=== PATIENT | male | born 1935 | race Caucasian/White ===

== ENCOUNTER → 2016-08-21 | Outpatient (CLI) | payer MEDICARE, OTHER ==
[~2016-08-21] MED LIST: AMBIEN10 MG PO; ASPIRIN E.C. 8181 MG PO; ATROVENT NASAL15 ML NS; DETROL LA 4MG4 MG PO; FLOMAX0.4 MG PO; LISINOPRIL10 MG PO; METFORMIN500 MG PO; NEURONTIN300 M1 PO; NORCO 325 MG-51 TA1 PO; PRILOSEC 20MG20 MG PO; ZOCOR20 M1 PO
== END ==
LOC: LAB 07:13
DX: E11.9 Type 2 diabetes mellitus without complications (principal); N40.0 Benign prostatic hyperplasia without lower urinary tract symptoms; I10 Essential (primary) hypertension

== ENCOUNTER → 2016-09-02 | Outpatient (CLI) | payer MEDICARE, OTHER | LOC: VAS 16:45 | DX: R01.1 Cardiac murmur, unspecified (principal); I10 Essential (primary) hypertension; I35.0 Nonrheumatic aortic (valve) stenosis; I05.9 Rheumatic mitral valve disease, unspecified ==

== ENCOUNTER 2016-12-31 09:23 | Emergency (ER) | payer MEDICARE, OTHER ==
[~2016-12-31] VITALS: Wt 109.1 kg
[~2016-12-31 09:23] MED LIST changes: -AMBIEN10 MG PO; -ASPIRIN E.C. 8181 MG PO; -ATROVENT NASAL15 ML NS; -FLOMAX0.4 MG PO; -NEURONTIN300 M1 PO; -PRILOSEC 20MG20 MG PO
[2016-12-31] MEDS ORDERED: AMBIEN10 MG PO (10:52)
[2016-12-31] MEDS ORDERED: NEURONTIN300 M1 PO (10:53)
[2016-12-31] MEDS ORDERED: PRILOSEC 20MG20 MG PO (10:54)
[2016-12-31] MEDS ORDERED: ASPIRIN E.C. 8181 MG PO (10:55)
[2016-12-31] MEDS ORDERED: ATROVENT NASAL15 ML NS (10:55)
[2016-12-31] MEDS ORDERED: FLOMAX0.4 MG PO (12:55)
[2016-12-31 13:30] VITALS: BP 136/84
== END 2016-12-31 13:33 | disposition home or self-care (01) ==
LOC: ED 09:23
DX: R33.9 Retention of urine, unspecified (principal); R10.2 Pelvic and perineal pain; R63.0 Anorexia; E11.9 Type 2 diabetes mellitus without complications; I10 Essential (primary) hypertension; Z87.891 Personal history of nicotine dependence; Z79.84 Long term (current) use of oral hypoglycemic drugs
CPT/HCPCS: J7030; Q9967

== ENCOUNTER → 2017-01-06 | Outpatient (CLI) | payer MEDICARE, OTHER ==
[~2017-01-06] VITALS: Wt 109.1 kg
[~2017-01-06] MED LIST changes: +AMBIEN10 MG PO; +ASPIRIN E.C. 8181 MG PO; +ATROVENT NASAL15 ML NS; +FLOMAX0.4 MG PO; +NEURONTIN300 M1 PO; +PRILOSEC 20MG20 MG PO
[2017-01-06 20:35] VITALS: BP 137/73
--- NOTE | 2017-01-06 22:50 | NUR ---
20F COUDE VELAZQUEZ CATH PLACED WITHOUT DIFFICULTY. 650 ML OF CLEAR YELLOW URINE INITIALLY DRAINED. PT STATED HE HAD RELIEF AFTER VELAZQUEZ PLACED. VELAZQUEZ SWITCHED TO LEG BAG PER PT REQUEST AND LARGER BAG SENT WITH PT/.
== END ==
LOC: AMSURD 22:26
DX: Z46.6 Encounter for fitting and adjustment of urinary device (principal)
CPT/HCPCS: A4340; A4358

== ENCOUNTER → 2017-01-07 | Outpatient (CLI) | payer MEDICARE, OTHER ==
[~2017-01-07] VITALS: Wt 109.1 kg
[2017-01-07 22:10] VITALS: BP 126/83
== END ==
LOC: AMSURD 22:07
DX: Z46.6 Encounter for fitting and adjustment of urinary device (principal)

== ENCOUNTER → 2017-02-25 | Outpatient (CLI) | payer MEDICARE, OTHER ==
[2017-01-07 22:10] VITALS: BP 126/83
== END ==
LOC: LAB 09:04
DX: G47.62 Sleep related leg cramps (principal)

== ENCOUNTER → 2017-09-25 | Outpatient (CLI) | payer MEDICARE, OTHER ==
[2017-01-07 22:10] VITALS: BP 126/83
[2017-09-25 07:39] LABS: HEMATOCRIT 42.6 % (42.0-52.0); HEMOGLOBIN 14.5 g/dL (13.5-18.0); MEAN CELL VOLUME 98 fl (78-100); MEAN CORPUSCULAR HEMOGLOBIN 34 pg (27-31); MEAN CORPUSCULAR HGB CONC 34 g/dL (33-37); MEAN PLATELET VOLUME 9.6 fl (7.4-10.4); PLATELET COUNT 271 K/mm3 (130-400); RED BLOOD COUNT 4.33 M/mm3 (4.20-5.60); RED CELL DISTRIBUTION WIDTH 13.1 % (11.5-14.5); WHITE BLOOD COUNT 12.8 K/mm3 (4.8-10.8)
[2017-09-25 07:47] LABS: ALBUMIN 4.2 g/dL (3.5-5.0); BUN/CREATININE RATIO 26.7 (6.0-26.0); CALCIUM 9.3 mg/dL (8.4-10.2); POTASSIUM 4.3 mmol/L (3.6-5.0); TOTAL BILIRUBIN 0.4 mg/dL (0.2-1.3); TOTAL PROTEIN 7.3 g/dL (6.3-8.2)
[2017-09-25 07:48] LABS: URINE APPEARANCE CLOUDY; URINE COLOR YELLOW; URINE GLUCOSE NEGATIVE (NEGATIVE); URINE KETONE NEGATIVE (NEGATIVE); URINE PROTEIN(semi-quant) TRACE mg/dL (NEGATIVE)
[2017-09-25 07:49] LABS: URINE BILIRUBIN NEGATIVE (NEGATIVE); URINE BLOOD TRACE (NEGATIVE); URINE LEUKOCYTE ESTERASE 2+ (NEGATIVE); URINE MUCUS PRESENT (NOT PRESENT); URINE NITRATE POSITIVE (NEGATIVE); URINE UROBILINOGEN NORMAL (NORMAL); URINE WBC >50 /hpf (0-3)
[2017-09-25 08:04] LABS: LYMPHOCYTE 14 % (20-51); MONOCYTE 6 % (3-10); NEUTROPHILS 80 % (42-75)
== END ==
LOC: LAB 07:18
PROVIDERS: Family Medicine
DX: E11.9 Type 2 diabetes mellitus without complications (principal); N40.0 Benign prostatic hyperplasia without lower urinary tract symptoms; I10 Essential (primary) hypertension; Z91.041 Radiographic dye allergy status

== ENCOUNTER → 2017-10-13 | Outpatient (CLI) | payer MEDICARE, OTHER ==
[2017-01-07 22:10] VITALS: BP 126/83
[2017-10-13 15:51] LABS: URINE APPEARANCE CLEAR; URINE BILIRUBIN NEGATIVE (NEGATIVE); URINE COLOR YELLOW; URINE GLUCOSE NEGATIVE (NEGATIVE); URINE KETONE NEGATIVE (NEGATIVE); URINE NITRATE NEGATIVE (NEGATIVE); URINE PROTEIN(semi-quant) NEGATIVE (NEGATIVE); URINE UROBILINOGEN NORMAL (NORMAL)
[2017-10-13 15:52] LABS: URINE BLOOD NEGATIVE (NEGATIVE); URINE LEUKOCYTE ESTERASE 1+ (NEGATIVE); URINE WBC 16-30 /hpf (0-3)
== END ==
LOC: LAB 14:20
PROVIDERS: Family Medicine
DX: E11.9 Type 2 diabetes mellitus without complications (principal); I10 Essential (primary) hypertension; Z91.041 Radiographic dye allergy status

== ENCOUNTER → 2017-10-29 | Outpatient (CLI) | payer MEDICARE, OTHER ==
[2017-01-07 22:10] VITALS: BP 126/83
[2017-10-29 10:13] LABS: PH-URINE 5.5 (5.0 - 8.0); URINE APPEARANCE CLEAR; URINE BILIRUBIN NEGATIVE (NEGATIVE); URINE COLOR YELLOW; URINE GLUCOSE NEGATIVE (NEGATIVE); URINE KETONE NEGATIVE (NEGATIVE); URINE NITRATE NEGATIVE (NEGATIVE); URINE UROBILINOGEN NORMAL (NORMAL)
[2017-10-29 10:14] LABS: URINE BLOOD NEGATIVE (NEGATIVE); URINE LEUKOCYTE ESTERASE 1+ (NEGATIVE); URINE MUCUS PRESENT (NOT PRESENT); URINE PROTEIN(semi-quant) TRACE mg/dL (NEGATIVE)
== END ==
LOC: LAB 09:53
PROVIDERS: Family Medicine
DX: N39.0 Urinary tract infection, site not specified (principal); Z91.041 Radiographic dye allergy status

== ENCOUNTER 2018-01-31 18:26 | Emergency (ER) | payer MEDICARE, OTHER ==
[~2018-01-31] VITALS: Ht 22.9 cm; Wt 104.5 kg
[2018-01-31 19:08] LABS: EOS # 0.1 (0.04-0.40); EOS % 0.6 % (0.0-4.0); HEMATOCRIT 43.4 % (42.0-52.0); HEMOGLOBIN 14.7 g/dL (13.5-18.0); LYMPH# 1.9 (1.50-4.00); MEAN CELL VOLUME 98 fl (78-100); MEAN CORPUSCULAR HEMOGLOBIN 33 pg (27-31); MEAN CORPUSCULAR HGB CONC 34 g/dL (33-37); MEAN PLATELET VOLUME 9.5 fl (7.4-10.4); MONO # 0.5 (0.20-0.80); NEU # 6.3 (1.40-6.50); PLATELET COUNT 195 K/mm3 (130-400); RED BLOOD COUNT 4.44 M/mm3 (4.20-5.60); RED CELL DISTRIBUTION WIDTH 12.7 % (11.5-14.5); WHITE BLOOD COUNT 8.7 K/mm3 (4.8-10.8)
[2018-01-31 19:17] LABS: ALBUMIN 3.9 g/dL (3.5-5.0); BUN/CREATININE RATIO 20.9 (6.0-26.0); CALCIUM 9.2 mg/dL (8.4-10.2); POTASSIUM 4.1 mmol/L (3.6-5.0); TOTAL BILIRUBIN 0.4 mg/dL (0.2-1.3); TOTAL PROTEIN 7.1 g/dL (6.3-8.2)
[2018-01-31 19:59] LABS: URINE APPEARANCE CLEAR; URINE BILIRUBIN NEGATIVE (NEGATIVE); URINE BLOOD NEGATIVE (NEGATIVE); URINE COLOR YELLOW; URINE GLUCOSE NEGATIVE (NEGATIVE); URINE KETONE NEGATIVE (NEGATIVE); URINE LEUKOCYTE ESTERASE 1+ (NEGATIVE); URINE NITRATE NEGATIVE (NEGATIVE); URINE PROTEIN(semi-quant) NEGATIVE (NEGATIVE); URINE UROBILINOGEN NORMAL (NORMAL)
[2018-01-31 22:15] VITALS: BP 124/80
== END 2018-01-31 22:14 | disposition home or self-care (01) ==
LOC: ED 18:26
PROVIDERS: Family Medicine
DX: K59.00 Constipation, unspecified (principal); I10 Essential (primary) hypertension; E78.5 Hyperlipidemia, unspecified; E11.9 Type 2 diabetes mellitus without complications; Z79.899 Other long term (current) drug therapy; Z79.82 Long term (current) use of aspirin; Z79.84 Long term (current) use of oral hypoglycemic drugs

== ENCOUNTER → 2018-09-25 | Outpatient (CLI) | payer MEDICARE, OTHER ==
[2018-09-25 14:56] LABS: HEMATOCRIT 42.4 % (42.0-52.0); MEAN CELL VOLUME 99 fl (78-100); MEAN CORPUSCULAR HEMOGLOBIN 33 pg (27-31); MEAN CORPUSCULAR HGB CONC 33 g/dL (33-37); MEAN PLATELET VOLUME 9.9 fl (7.4-10.4); PLATELET COUNT 304 K/mm3 (130-400); RED BLOOD COUNT 4.29 M/mm3 (4.20-5.60); WHITE BLOOD COUNT 16.7 K/mm3 (4.8-10.8)
[2018-09-25 15:04] LABS: ALBUMIN 4.4 g/dL (3.5-5.0); CALCIUM 9.3 mg/dL (8.4-10.2); POTASSIUM 4.8 mmol/L (3.6-5.0); TOTAL BILIRUBIN 0.4 mg/dL (0.2-1.3); TOTAL PROTEIN 7.5 g/dL (6.3-8.2)
[2018-09-25 15:38] LABS: LYMPHOCYTE 13 % (20-51); MONOCYTE 1 % (3-10); NEUTROPHILS 86 % (42-75)
[2018-09-25 15:50] LABS: URINE APPEARANCE CLEAR; URINE BILIRUBIN NEGATIVE (NEGATIVE); URINE BLOOD NEGATIVE (NEGATIVE); URINE COLOR YELLOW; URINE GLUCOSE NEGATIVE (NEGATIVE); URINE KETONE NEGATIVE (NEGATIVE); URINE LEUKOCYTE ESTERASE NEGATIVE (NEGATIVE); URINE NITRATE NEGATIVE (NEGATIVE); URINE PROTEIN(semi-quant) TRACE mg/dL (NEGATIVE); URINE UROBILINOGEN NORMAL (NORMAL); URINE WBC 0-1 /hpf (0-3)
== END ==
LOC: LAB 14:29
PROVIDERS: Family Medicine
DX: E11.9 Type 2 diabetes mellitus without complications (principal); I10 Essential (primary) hypertension; N40.0 Benign prostatic hyperplasia without lower urinary tract symptoms